=== PATIENT | male | born 1955 | race Caucasian/White ===

== ENCOUNTER 2019-02-12 20:40 | Inpatient (IN) | payer OTHER ==
[~2019-02-12] VITALS: Ht 185.4 cm; Wt 95.5 kg
[2019-02-12 21:01] LABS: BASOPHILS ABSOLUTE AUTO 0.07 K/mm3 (0.00-0.23); BASOPHILS PERCENT AUTO 1 % (0-2); EOSINOPHILS ABSOLUTE AUTO 0.71 K/mm3 (0.00-0.68); EOSINOPHILS PERCENT AUTO 6 % (0-6); Hematocrit 48.9 % (37.0-53.0); Hemoglobin 16.1 g/dL (13.5-17.5); IMMATURE GRAN ABSOLUTE AUTO 0.09 K/mm3 (0.00-0.10); IMMATURE GRAN PERCENT AUTO 1 % (0-1); LYMPHOCYTES PERCENT AUTO 20 % (21-46); MONOCYTES ABSOLUTE AUTO 1.29 K/mm3 (0.16-1.47); MONOCYTES PERCENT AUTO 11 % (4-13); Mean Corpuscular HGB 32.2 pg (26.0-34.0); Mean Corpuscular HGB Conc 32.9 g/dL (31.5-36.5); Mean Corpuscular Volume 98 fL (80-100); Mean Platelet Volume 10.8 fL (9.1-12.4); NEUTROPHILS ABSOLUTE AUTO 7.66 K/mm3 (1.96-9.15); NEUTROPHILS PERCENT AUTO 62 % (41-73); Platelet Count 257 K/mm3 (150-400); RDW Coefficient Variation 13.2 % (11.7-14.2); RDW Standard Deviation 47.4 fL (35.1-46.3); White Blood Cell Count 12.32 K/mm3 (4.00-11.30)
[2019-02-12 21:16] LABS: International Normalized Ratio 0.95; Prothrombin Time Results 10.1 Sec (9.7-11.5)
[2019-02-12] MEDS ORDERED: ASPI81CH PO (21:16)
[2019-02-12] MEDS ORDERED: ATOR10 PO (21:16)
[2019-02-12] MEDS ORDERED: NIFE10 PO (21:16)
[2019-02-12] MEDS ORDERED: ESZO1 PO (21:16)
[2019-02-12] MEDS ORDERED: TAMS.4ER PO (21:17)
[2019-02-12] MEDS ORDERED: METO25ER PO (21:17)
[2019-02-12 21:21] LABS: Albumin, Blood 3.8 g/dL (3.4-5.0); Bilirubin, Total 0.6 mg/dL (0.1-1.0); Bun/Creatinine Ratio 15.6 (12.0-20.0); Calcium, Blood 9.1 mg/dL (8.5-10.1); Creatinine, Blood 1.73 mg/dL (0.60-1.20); Globulin, Blood 3.9 g/dL (2.2-4.0); Potassium, Blood 3.7 mmol/L (3.5-5.5); Total Protein, Blood 7.7 g/dL (6.4-8.2)
[2019-02-12 22:25] LABS: U Amphetamine Screen Not Detected; U Barbituate Screen Not Detected; U Benzodiazapine Screen Not Detected; U Buprenorphine Screen Not Detected; U Cannabinoids Screen Not Detected; U Cocaine Screen Not Detected; U Methadone Screen Not Detected; U Methamphetamine Screen Not Detected; U Opiates Screen Not Detected; U Oxycodone Screen Not Detected; U Phencyclidine Screen Not Detected; U Propoxyphene Screen Not Detected
[2019-02-12 23:42] LABS: CHOL/HDL RATIO 2.8; Cholesterol 122 mg/dL (50-200); HDL Cholesterol 44 mg/dL (>39); Low Density Lipoprotein Chol 45 mg/dL (0-110); Triglycerides 165 mg/dL (30-160); Very Low Density Lipoprot Chol 33 mg/dL (6-32)
--- NOTE | 2019-02-13 05:17 | NUR ---
SHIFT SUMMARY 0040 RECEIVED PT TO 341 VIA GURNEY FROM ER. SLIDE TX TO BED. RECEIVED REPORT FROM ABDIAS ETIENNE. PT TO ER WITH C/O SUDDEN ONSET OF WORD SALAD AND SLURRED SPEECH AROUND 1909. PT ADMITTED FOR CVA, BUT CONTINUES TO NOT HAVE ANY OTHER NOTED DEFICITS. OCCASSIONAL EXPRESSIVE APHAGIA WITH SOME SPECIFIC ANS, PER REPORT FROM ABDIAS ETIENNE WELL. SPEECH DID NOT SEEM TO BE VERY SLURRED WHEN ADMITTING TO , HOWEVER, PT DID NOT WANT TO ANS QUESTIONS IF HE DID NOT HAVE TO. PT'S TO WITH PT WHO ASSISTED WITH ADMISSION WELL HELPING PT WITH URINAL. HX OF HTN, HLD, DVT, PANCREATITIS AND L NEPHRECTOMY. PT AND FROM [facility] [place]. PT DENIED ANY DIFFICULTIES WITH USE OF EXTREMITIES. SR ON TELE WITH OCCASSIONAL PVC'S. PT HAS RESTED QUIETLY SINCE GOING TO SLEEP. REMAINS AT BS. CALL LT IN REACH.
--- NOTE | 2019-02-13 06:03 | NUR ---
PT WOKE RECENTLY FOR AM VS. PT REPORTED FEELING "FINE", WITH NO DEFICITS IN EXTREMITIES. HOWEVER, WHEN ASKED IF HE KNEW WHERE HE WAS HIS SPEECH BECAME WORD SALAD AND SLIGHTLY SLURRED. SPEECH DID NOT MAKE SENSE AND HE SEEMED TO BE AWARE THAT HE WAS UNABLE TO GET OUT THE WORDS THAT HE WAS LOOKING FOR. NO C/O PAIN OR N/T ANYWHERE. DENIED FURTHER NEEDS. CALL LT IN REACH.
--- NOTE | 2019-02-13 10:35 | NUR ---
Echocardiogram completed.
--- NOTE | 2019-02-13 17:26 | NUR ---
SUMMARY PT RESTING IN BED WITH HIS SPOUSE AT THE BEDSIDE, PT HAS BEEN PLEASANT AND COOPERATIVE, NEURO CHECKS REMAIN THE SAME, ELECTRICIAN FRONT EQUAL, PUPILS EQUAL, STRENGTH EQUAL, PT CONT TO HAVE EXPRESSIVE APHASIA AT TIMES, POSSIBLE PLAN TO DC IN AM, VSS, NO ACUTE CHANGES, WILL CONT TO MONITOR
--- NOTE | 2019-02-14 05:22 | NUR ---
high bp at beginning of shift took three times called value to hospitalist who said she wanted it high after a stroke and not to worry for anything less than 200/105, at bed side, home medication given by family, room air, saline locked, will continue to monitor and treat until SBAR report given to day shift
[2019-02-14] MEDS ORDERED: NIFE30ER PO (11:20)
[2019-02-14] MEDS ORDERED: ACET325 PO (11:20)
[2019-02-14] MEDS ORDERED: XARELTO15 MG PO (11:21)
--- NOTE | 2019-02-14 13:01 | NUR ---
PATIENT DISCHARGE: PATIENT DISCHARGED TO HOME THIS SHIFT. MEDICATION RECONCILIATION COMPLETED. DISCHARGE EDUCATION COMPLETED WITH PATIENT AND FAMILY. PATIENT DECLINED WHEELCHAIR TO EXIT. PATIENT LEFT MEDICAL FLOOR AT 1300. PATIENT DEPARTED [facility] VIA PRIVATE AUTO.
== END 2019-02-14 12:56 | disposition home or self-care (01) | DRG 66 ==
LOC: ER 20:40 → MEDS 23:24
PROVIDERS: Emergency Medicine; Nurse Practitioner Acute Care; ADMIT Internal Medicine
DX: I63.512 Cerebral infarction due to unspecified occlusion or stenosis of left middle cerebral artery (principal); R47.81 Slurred speech; I10 Essential (primary) hypertension; F17.210 Nicotine dependence, cigarettes, uncomplicated; E78.5 Hyperlipidemia, unspecified; I25.10 Atherosclerotic heart disease of native coronary artery without angina pectoris; F10.20 Alcohol dependence, uncomplicated; N40.1 Benign prostatic hyperplasia with lower urinary tract symptoms; Z79.01 Long term (current) use of anticoagulants; Z79.82 Long term (current) use of aspirin; Z86.718 Personal history of other venous thrombosis and embolism; Z95.1 Presence of aortocoronary bypass graft; Z95.2 Presence of prosthetic heart valve
CPT/HCPCS: 36415; 70450; 70496; 70498; 70551; 80053; 80061; 83735; 85025; 85610; 85730; 92523; 92610; 93005; 93010; 93306; 96360-59; 96361; 97161; 97165; 97530; 99285-25; G0480; J1650; J7030; Q9967